=== PATIENT | female | born 1975 | race African-American/Black ===

== ENCOUNTER 2022-10-29 09:44 | Emergency (ER) | payer MEDICAID, OTHER ==
[~2022-10-29] VITALS: Ht 162.6 cm; Wt 90.0 kg
[2022-10-29 09:51] VITALS: BP 149/76
[2022-10-29] MEDS ORDERED: ACETAMINOPHEN 325MG TABLET PO ONE (10:15)
[2022-10-29] MEDS ORDERED: ONDANSETRON 4MG ODT PO ONE (10:15)
[2022-10-29] MEDS ORDERED: TOPUD MT (10:24)
== END 2022-10-29 10:37 | disposition home or self-care (01) ==
LOC: ER 09:44
DX: J06.9 Acute upper respiratory infection, unspecified (principal); Z88.0 Allergy status to penicillin; Z98.890 Other specified postprocedural states
CPT/HCPCS: 99283; Q0162